=== PATIENT | female | born 1950 | race Caucasian/White ===

== ENCOUNTER 2019-09-03 10:10 | Emergency (ER) | payer MEDICARE, OTHER ==
[2019-09-03 10:25] VITALS: BP 133/80
--- NOTE | 2019-09-03 10:38 | UC ---
Throat Pain/Nasal Dheeraj HPI - HPI Summary HPI Summary: sinus pain / pressure x 10 days pain is 5 out 10 , worse with heat movement, nothing makes it better nasal congestion, pnd, dry cough no fever, no chills - History of Current Complaint Chief Complaint: UCGeneralIllness Stated Complaint: HEAD/CHEST CONGESTION Time Seen by Provider: 09/03/19 10:28 Hx Obtained From: Patient Onset/Duration: Gradual Onset, Lasting Days - 10, Still Present Severity: Moderate Pain Intensity: 0 Cough: Nonproductive Associated Signs & Symptoms: Positive: Sinus Discomfort, Nasal Discharge. Negative: Wheezing, Fever, Vomiting, Rash - Allergies/Home Medications Allergies/Adverse Reactions: Allergies Allergy/AdvReac Type Severity Reaction Status Date / Time promethazine [From Phenergan] Allergy See Comment Verified 09/03/19 10:26 PMH/Surg Hx/FS Hx/Imm Hx - Additional Past Medical History Additional PMH: high cholesterol Gerd GI/ History: Gastroesophageal Reflux - Surgical History Surgical History: Yes Surgery Procedure, Year, and Place: gallbladder, hysterectomy-Complete,lt wrist - Family History Known Family History: Positive: Non-Contributory - Social History Alcohol Use: Rare Substance Use Type: None Smoking Status (MU): Former Smoker When Did the Patient Quit Smoking/Using Tobacco: 30 years - Immunization History Most Recent Influenza Vaccination: 2012 Review of Systems All Other Systems Reviewed And Are Negative: Yes Constitutional: Positive: Chills, Fatigue Skin: Positive: Negative Eyes: Positive: Negative ENT: Positive: Sore Throat, Nasal Discharge, Sinus Congestion, Sinus Pain/ Tenderness Respiratory: Positive: Cough Is Patient Immunocompromised?: No Physical Exam Triage Information Reviewed: Yes Appearance: Well-Appearing, No Pain Distress, Well-Nourished Vital Signs: Initial Vital Signs Temp 98.5 F 09/03/19 10:20 Pulse 71 09/03/19 10:20 Resp 18 09/03/19 10:20 BP 133/80 09/03/19 10:20 Pulse Ox 96 09/03/19 10:20 Vital Signs Reviewed: Yes Eye Exam: Normal Eyes: Positive: Conjunctiva Clear ENT: Positive: Normal ENT inspection, Hearing grossly normal, Pharynx normal, Nasal congestion, Nasal drainage Neck: Positive: Supple, Nontender, No Lymphadenopathy Respiratory: Positive: Chest non-tender, Lungs clear, Normal breath sounds, No respiratory distress Cardiovascular: Positive: RRR, No Murmur, Pulses Normal Abdominal Exam: Normal Skin Exam: Normal Throat Pain/Nasal Course/Dx - Differential Dx/Diagnosis Provider Diagnosis: Sinusitis, Bronchitis Discharge ED - Sign-Out/Discharge Documenting (check all that apply): Patient Departure All imaging exams completed and their final reports reviewed: No Studies - Discharge Plan Condition: Stable Disposition: HOME Prescriptions: Amoxicillin/Clavulanate TAB* [Augmentin TAB 875*] 875 mg PO BID #20 tab Patient Education Materials: Sinusitis (ED), Acute Bronchitis (ED) Referrals: Jesus Alberto Diggs MD [Primary Care Provider] - If Needed - Billing Disposition and Condition Condition: STABLE Disposition: Home
== END 2019-09-03 10:38 | disposition home or self-care (01) ==
LOC: UCCORT 10:10
DX: J32.9 Chronic sinusitis, unspecified (principal); J40 Bronchitis, not specified as acute or chronic; Z88.8 Allergy status to other drugs, medicaments and biological substances; Z87.891 Personal history of nicotine dependence
CPT/HCPCS: 99212; G0463